=== PATIENT | female | born 1980 | race Caucasian/White ===

== ENCOUNTER 2018-09-05 19:43 | Emergency (ER) | payer OTHER ==
[~2018-09-05] VITALS: Ht 167.6 cm; Wt 57.1 kg
[~2018-09-05 19:43] MED LIST: APAP500 PO; BENTYL 10 MG CA10 M1 PO; IBUPROFEN 800800 MG PO; IRON325 PO; NORFLEX100 MG PO; REGLAN 10 MG TA10 MG PO; ROBAXIN500 MG PO; TRAMADOL 50 MG50 MG PO; XANAX 0.25 MG0.25 MG PO
[2018-09-05] MEDS ORDERED: CLEOCIN HCL150 MG PO (20:22)
[2018-09-05] MEDS ORDERED: NORCO 5-325 TA1 EACH PO (20:22)
[2018-09-05] MEDS ORDERED: ACETAMINOPHEN-1 EAC1 PO (20:56)
[2018-09-05] MEDS ORDERED: ONDANSETRON HCL4 M2 PO (20:56)
[2018-09-05 21:07] VITALS: BP 132/90
== END 2018-09-05 21:08 | disposition home or self-care (01) ==
LOC: M.ERS 19:43
DX: L02.01 Cutaneous abscess of face (principal); F17.210 Nicotine dependence, cigarettes, uncomplicated; Z98.890 Other specified postprocedural states

== ENCOUNTER 2018-11-02 23:48 | Emergency (ER) | payer OTHER ==
[~2018-11-02] VITALS: Ht 167.6 cm; Wt 54.4 kg
[~2018-11-02 23:48] MED LIST changes: +ACETAMINOPHEN-1 EAC1 PO; +CLEOCIN HCL150 MG PO; +NORCO 5-325 TA1 EACH PO; +ONDANSETRON HCL4 M2 PO
[2018-11-03] MEDS ORDERED: CLEOCIN HCL150 MG PO (02:04)
[2018-11-03] MEDS ORDERED: NORCO 5-325 TA1 EAC1 PO (02:04)
[2018-11-03 02:17] VITALS: BP 112/85
== END 2018-11-03 02:18 | disposition home or self-care (01) ==
LOC: M.ERS 23:48
DX: L02.11 Cutaneous abscess of neck (principal); L02.213 Cutaneous abscess of chest wall; F17.210 Nicotine dependence, cigarettes, uncomplicated; Z87.448 Personal history of other diseases of urinary system

== ENCOUNTER 2018-11-11 14:32 | Emergency (ER) | payer OTHER ==
[~2018-11-11] VITALS: Ht 170.2 cm; Wt 56.7 kg
[~2018-11-11 14:32] MED LIST changes: +NORCO 5-325 TA1 EAC1 PO
[2018-11-11 15:30] LABS: ABSOLUTE BASOPHILS 0.1 thou/uL (0.0-0.2); ABSOLUTE EOSINOPHILS 0.1 thou/uL (0.0-0.7); ABSOLUTE LYMPHOCYTES 1.5 thou/uL (0.8-5.3); ABSOLUTE MONOCYTES 0.6 thou/uL (0.0-1.2); ABSOLUTE NEUTROPHILS 4.6 thou/uL (1.6-8.1); BASOPHILS 0.8 %; EOSINOPHILS 1.2 %; HEMATOCRIT 33.5 % (37.0-47.0); HEMOGLOBIN 10.7 gm/dL (12.0-15.0); LYMPHOCYTES 21.8 %; MCH 23.8 pg (26.0-34.0); MCV 74.5 fL (80.0-100.0); MONOCYTES 8.4 %; MPV 7.7 fl. (7.2-11.1); NUCLEATED RBCS 0 /100WBC; PLATELET COUNT* 259 thou/uL (150-400); POLYS 67.8 %; RDW-CV 16.6 % (10.5-14.5); WBC 6.7 thou/uL (4.0-11.0)
[2018-11-11 15:38] LABS: ANION GAP 6 mmol/L (7-16); BUN 7 mg/dL (7-18); CALCIUM 9.3 mg/dL (8.5-10.1); CHLORIDE 103 mmol/L (98-107); CO2 29 mmol/L (21-32); CREATININE 0.7 mg/dL (0.6-1.3); GLUCOSE 87 mg/dL (70-99); POTASSIUM 3.5 mmol/L (3.5-5.1); SODIUM 138 mmol/L (136-145)
[2018-11-11 15:48] LABS: ALKALINE PHOSPHATASE 87 U/L (46-116); SGOT 13 U/L (15-37); SGPT 22 U/L (30-65); TOTAL BILIRUBIN 0.2 mg/dL (<0.1-1.0); TOTAL PROTEIN 6.9 g/dL (6.4-8.2); TROPONIN-I LEVEL <0.06 ng/mL (<0.06)
[2018-11-11] MEDS ORDERED: VOLTAREN GEL 1100 G2 TOP (17:35)
[2018-11-11] MEDS ORDERED: ROBAXIN 750 MG750 MG PO (17:51)
[2018-11-11 17:56] VITALS: BP 106/72
[2018-11-12] MEDS ORDERED: LIDODERM1 EACH TRANSDERM (02:38)
[2018-11-12] MEDS ORDERED: FLEXERIL PO (02:38)
[2018-11-12] MEDS ORDERED: PERCOCET PO (02:38)
== END 2018-11-11 17:57 | disposition home or self-care (01) ==
LOC: M.ERS 14:32
PROVIDERS: Physician Assistant
DX: J86.9 Pyothorax without fistula (principal); L02.11 Cutaneous abscess of neck; R51 Headache; M54.5 Low back pain; F17.210 Nicotine dependence, cigarettes, uncomplicated; Z98.51 Tubal ligation status

== ENCOUNTER 2018-11-12 02:08 | Emergency (ER) | payer OTHER ==
[~2018-11-12] VITALS: Ht 170.2 cm; Wt 56.7 kg
[~2018-11-12 02:08] MED LIST changes: +ROBAXIN 750 MG750 MG PO; +VOLTAREN GEL 1100 G2 TOP
[2018-11-12] MEDS ORDERED: LIDODERM1 EACH TRANSDERM (02:38)
[2018-11-12] MEDS ORDERED: PERCOCET PO (02:38)
[2018-11-12] MEDS ORDERED: FLEXERIL PO (02:38)
[2018-11-12 03:39] VITALS: BP 99/59
== END 2018-11-12 03:39 | disposition home or self-care (01) ==
LOC: M.ERS 02:08
DX: M54.5 Low back pain (principal); F17.210 Nicotine dependence, cigarettes, uncomplicated; Z98.51 Tubal ligation status